=== PATIENT | male | born 1960 | race Two or more races ===

== ENCOUNTER 2016-09-09 12:03 | Inpatient (IN) | payer OTHER ==
[~2016-09-09] VITALS: Ht 175.3 cm; Wt 88.0 kg
[2016-09-09] VITALS (30 sets, daily range): BP systolic 113–160; BP diastolic 58–87; PULSE 58–86; RESP 8–20; Ht 175.3 cm; Wt 88.0 kg
[~2016-09-09 12:03] MED LIST: ONDA-43 PO; RANI150T9 PO; TOPI25CA2 PO
--- NOTE | 2016-09-09 12:36 | HPN ---
Date/Time of Note Date/Time of Note DATE: 09/09/16 TIME: 12:36 Interval H&P Admission Note Pt. seen H&P reviewed: No system changes JORGE OMALLEY MD Sep 09, 2016 12:36
[2016-09-09] MEDS ORDERED: TRAZ100T15 PO (13:24)
[2016-09-09] MEDS ORDERED: ATOR40TA68 PO (13:24)
[2016-09-09] MEDS ORDERED: FLUO40CA PO (13:24)
[2016-09-09] MEDS ORDERED: BENZ0.5T3 PO (13:24)
[2016-09-09] MEDS ORDERED: PROPOFOL 100 ML ONE (13:57)
[2016-09-09] MEDS ORDERED: MIDAZOLAM 1 MG/ML 2 ML INJ ONE ×2 (13:57)
[2016-09-09] MEDS ORDERED: CEFAZOLIN 1 GM INJ ONE (13:57)
[2016-09-09] MEDS ORDERED: TRANEXAMIC ACID 1,000 MG in SOD CHLORIDE 0.9% 100 ML IV ONE ×4 (14:00)
[2016-09-09] MEDS ORDERED: POLYMYXIN/BACITRACIN 1L IRRIG ONE (14:51)
[2016-09-09] MEDS ORDERED: morphine SULFATE/PF (10 MG/10 ML) INJ ONE (15:02)
[2016-09-09] MEDS ORDERED: ACETAMINOPHEN 1000MG/100ML IV 100 ML ONE (15:23)
[2016-09-09] MEDS ORDERED: ONDANSETRON 4 MG INJ ONE (15:35)
[2016-09-09] MEDS ORDERED: METOCLOPRAMIDE 10 MG INJ ONE (15:35)
[2016-09-09] MEDS ORDERED: DEXAMETHASONE 4 MG/ML 1 ML INJ ONE (15:36)
[2016-09-09] MEDS ORDERED: KETOROLAC 30 MG INJ ONE (15:36)
[2016-09-09] MEDS ORDERED: PHENYLephrine (100 MCG/ML) 5ML SYG ONE ×2 (16:35→17:12)
[2016-09-09] MEDS ORDERED: ROPIVACAINE 0.5 % 30 ML VIAL ONE (16:51)
[2016-09-09] MEDS ORDERED: morphine (1 MG/ML) 10ML SYRINGE IV PRN ×2 (17:00)
[2016-09-09] MEDS ORDERED: ALBUMIN HUMAN 5% 250 ML IV PRN (17:00)
[2016-09-09] MEDS ORDERED: NALBUPHINE HCL (10 MG/1 ML) INJ IV PRN (17:00)
[2016-09-09] MEDS ORDERED: EPHEDrine SULFATE 50 MG/5 ML SYG IV PRN (17:00)
[2016-09-09] MEDS ORDERED: LABETALOL HCL 20MG INJ IV PRN (17:00)
[2016-09-09] MEDS ORDERED: MEPERIDINE 25 MG INJ IV PRN (17:00)
[2016-09-09] MEDS ORDERED: HYDROmorphONE (0.2 MG/ML) 10ML SYG IV PRN ×2 (17:00)
[2016-09-09] MEDS ORDERED: METOCLOPRAMIDE 10 MG INJ IV PRN (17:00)
[2016-09-09] MEDS ORDERED: hydrALAzine 20 MG INJ IV PRN (17:00)
[2016-09-09] MEDS ORDERED: NALOXONE (0.4 MG/ML) INJ IV PRN (17:00)
[2016-09-09] MEDS ORDERED: ONDANSETRON 4 MG INJ IV PRN ×2 (17:00→23:00)
[2016-09-09] MEDS ORDERED: DIPHENHYDRAMINE 50 MG INJ IV PRN ×2 (17:00)
[2016-09-09 17:41] LABS: HEMATOCRIT 37.2 % (42.0-52.0); HEMOGLOBIN 12.5 g/dl (14.0-18.0)
--- NOTE | 2016-09-09 17:52 | QN ---
Documentation Comment A.P TKREPLcement dyslipedemia plan per OMAR Mandujano MD Sep 09, 2016 17:52
[2016-09-09 18:02] LABS: CALCIUM 8.8 mg/dl (8.4-10.2); CREATININE 0.99 mg/dl (0.61-1.24); POTASSIUM 4.1 mmol/L (3.5-5.1)
[2016-09-09] MEDS: CEFAZOLIN 1 GM/50 ML (PMX) 50 ML IVPB SCH (19:53)
[2016-09-09] MEDS ORDERED: SOD CHLORIDE 0.9% 1,000 ML IV SCH (23:00)
[2016-09-09] MEDS ORDERED: ACETAMINOPHEN 325 MG TAB PO PRN (23:00)
[2016-09-10 00:02] VITALS: BP 132/77; PULSE 77; RESP 18
[2016-09-10] MEDS: CEFAZOLIN 1 GM/50 ML (PMX) 50 ML IVPB SCH ×2 (04:31→11:52)
[2016-09-10 05:23] LABS: ADD SCAN DIFF NO
[2016-09-10 05:30] LABS: BASOPHILS % 0.1 % (0.0-2.0); HEMATOCRIT 35.9 % (42.0-52.0); HEMOGLOBIN 12.1 g/dl (14.0-18.0); LYMPHOCYTES # 0.9 10^3/ul (0.8-2.9); LYMPHOCYTES % 7.2 % (15.0-51.0); MEAN CORPUSCULAR HEMOGLOBIN 28.9 pg (29.0-33.0); MEAN CORPUSCULAR HGB CONC 33.7 g/dl (32.0-37.0); MEAN CORPUSCULAR VOLUME 85.9 fl (82.0-101.0); MEAN PLATELET VOLUME 10.2 fl (7.4-10.4); MONOCYTE # 0.5 10^3/ul (0.3-0.9); MONOCYTES % 3.9 % (0.0-11.0); NEUTROPHIL # 10.9 10^3/ul (1.6-7.5); NEUTROPHILS % 88.4 % (39.0-77.0); PLATELET COUNT 233 10^3/UL (140-415); RED BLOOD COUNT 4.18 10^6/ul (4.70-6.10); WHITE BLOOD COUNT 12.3 10^3/ul (4.8-10.8)
[2016-09-10 05:56] LABS: CALCIUM 9.1 mg/dl (8.4-10.2); CREATININE 0.87 mg/dl (0.61-1.24); POTASSIUM 4.1 mmol/L (3.5-5.1)
--- NOTE | 2016-09-10 08:09 | QN ---
Documentation Comment [id number] OMAR ALICIA MD Sep 10, 2016 08:09
[2016-09-10 08:20] VITALS: BP 138/79; RESP 20
[2016-09-10] MEDS: FLUOXETINE 20 MG CAP PO SCH (08:28)
[2016-09-10] MEDS: TOPIRAMATE 25 MG TAB PO SCH ×2 (08:28→21:06)
[2016-09-10] MEDS: RANITIDINE 150 MG TAB PO SCH (08:28)
[2016-09-10] MEDS ORDERED: MAGNESIUM HYDROXIDE 30ML CUP PO PRN (08:30)
[2016-09-10] MEDS ORDERED: ONDANSETRON 4 MG INJ IV PRN (08:30)
[2016-09-10] MEDS ORDERED: NA PHOSPHATE/BIPHOS 133 ML ENEMA PR PRN (08:30)
[2016-09-10] MEDS ORDERED: ACETAMINOPHEN 325 MG TAB PO PRN (08:30)
[2016-09-10] MEDS ORDERED: ZOLPIDEM 5 MG TAB PO PRN (08:30)
[2016-09-10] MEDS ORDERED: HYDROCODONE/APAP (5/325) TAB PO PRN (08:30)
[2016-09-10] MEDS ORDERED: NACL 0.9% 3 ML SYG IV SCH (08:30)
[2016-09-10] MEDS ORDERED: ACETAMINOPHEN 650 MG SUPP PR PRN (08:30)
[2016-09-10] MEDS ORDERED: BISACODYL (EC) 5 MG TAB PO PRN (08:30)
[2016-09-10] MEDS ORDERED: RIVAROXABAN 10 MG TABLET PO SCH (09:00)
[2016-09-10] MEDS ORDERED: DOCUSATE SODIUM 100 MG CAP PO PRN (09:00)
[2016-09-10] MEDS ORDERED: TOPIRAMATE SPRINKLE 25 MG CAP PO SCH (09:00)
[2016-09-10] MEDS: morphine 2 MG INJ IV PRN ×2 (09:11→15:37)
[2016-09-10] MEDS: HYDROCODONE/APAP (10/325) TAB PO PRN ×2 (11:58→21:09)
--- NOTE | 2016-09-10 13:10 | PN ---
Date/Time of Note Date/Time of Note DATE: 09/10/16 TIME: 13:08 Assessment/Plan VTE Prophylaxis VTE Prophylaxis Intervention: SCD's Lines/Catheters IV Catheter Type (from Nrs): Saline Lock Urinary Cath still in place: Yes Reason Cath still needed: other (indicate) (will remove) Assessment/Plan Chief Complaint/Hosp Course 1. S/p right knee replacement 2. Hypertension, controlled 3. Overweight 4. Dyslipidemia 5. depression, major Problems: Assessment/Plan 1. D/c [place] 2. Stop IV fluids Subjective 24 Hr Interval Summary Constitutional: improved, no complaints Respiratory: no complaints Cardiovascular: no complaints Musculoskeletal: bone/joint pain (right knee) Exam/Review of Systems Vital Signs Vitals Vital Signs Date Time Temp Pulse Resp B/P Pulse Ox O2 Delivery O2 Flow Rate FiO2 09/10/16 08:20 98.7 79 20 138/79 94 09/10/16 00:02 Nasal Cannula 2.0 Intake and Output 09/09/16 09/09/16 09/10/16 15:00 23:00 07:00 Intake Total 2000 ml 1525 ml Output Total 600 ml 1640 ml Balance 1400 ml -115 ml Exam Constitutional: alert, oriented Neck: non-tender, supple Respiratory: clear to auscultation Cardiovascular: regular rate and rhythm Results Result Diagram: 09/10/16 0426 09/10/16 0426 Results 24 hrs Laboratory Tests Test 09/09/16 17:36 09/10/16 04:26 Hemoglobin 12.5 L 12.1 L Hematocrit 37.2 L 35.9 L Sodium Level 139 140 Potassium Level 4.1 4.1 Chloride Level 106 101 Carbon Dioxide Level 24 27 Anion Gap 13 16 Blood Urea Nitrogen 13 12 Creatinine 0.99 0.87 Glucose Level 93 135 # Calcium Level 8.8 9.1 White Blood Count 12.3 #H Red Blood Count 4.18 L Mean Corpuscular Volume 85.9 Mean Corpuscular Hemoglobin 28.9 L Mean Corpuscular Hemoglobin Concent 33.7 Red Cell Distribution Width 13.0 Platelet Count 233 Mean Platelet Volume 10.2 # Neutrophils % 88.4 H Lymphocytes % 7.2 L Monocytes % 3.9 Eosinophils % 0.0 Basophils % 0.1 Nucleated Red Blood Cells % 0.0 Neutrophils # 10.9 H Lymphocytes # 0.9 Monocytes # 0.5 Eosinophils # 0.0 Basophils # 0.0 Nucleated Red Blood Cells # 0.0 Medications Medications Current Medications Diphenhydramine HCl (Benadryl) 25 mg Q4H PRN IV PRURITUS; Start 09/09/16 at 17: 00 Nalbuphine HCl (Nubain) 10 mg Q4H PRN IV PRURITUS; Start 09/09/16 at 17:00 Naloxone HCl (Narcan) 0.2 mg Q2M PRN IV FOR RESP RATE 8 OR LESS; Start 09/09/16 at 17:00 Atorvastatin Calcium (Lipitor) 40 mg QHS PO ; Start 09/10/16 at 21:00 Benztropine Mesylate (Cogentin) 0.5 mg QHS PO ; Start 09/10/16 at 21:00 Fluoxetine HCl (Prozac) 20 mg DAILY PO Last administered on 09/10/16 08:28; Admin Dose 20 MG; Start 09/10/16 at 09:00 Trazodone HCl (Desyrel) 100 mg QHS PO ; Start 09/10/16 at 21:00 Patient Own Medication 2 ea HS PO ; Start 09/10/16 at 00:00 Clonidine 0.1 mg 0.1 mg Q6H PRN PO ELEVATED BLOOD PRESSURE; Start 09/09/16 at 23 :00 Sodium Chloride (NS) 1,000 ml @ 50 mls/hr Q20H IV Last administered on 23:36; Admin Dose 50 MLS/HR; Start 09/09/16 at 23:00 Ondansetron HCl (Zofran Inj) 4 mg Q6H PRN IV NAUSEA AND/OR VOMITING Last administered on 09/09/16 23:37; Admin Dose 4 MG; Start 09/09/16 at 23:00 Morphine Sulfate (morphine) 2 mg Q3H PRN IV PAIN Last administered on 09/10/16 09:11; Admin Dose 2 MG; Start 09/09/16 at 23:00 Topiramate (Topamax) 25 mg BID PO Last administered on 09/10/16 08:28; Admin Dose 25 MG; Start 09/10/16 at 09:00 Acetaminophen/ Hydrocodone Bitart ([place] (10/325)) 1 tab Q4H PRN PO PAIN Last administered on 09/10/16 11:58; Admin Dose 1 TAB; Start 09/10/16 at 08:00 Ranitidine HCl (Zantac) 150 mg DAILY PO Last administered on 09/10/16t 08:28; Admin Dose 150 MG; Start 09/10/16 at 09:00 Ondansetron HCl (Zofran Inj) 4 mg Q6H PRN IV NAUSEA AND/OR VOMITING; Start 09/10 at 08:30 Acetaminophen (Tylenol Tab) 650 mg Q6H PRN PO PAIN LEVEL 1-3 OR FEVER; Start at 08:30 Acetaminophen (Tylenol Supp) 650 mg Q6H PRN [place] PAIN LEVEL 1-3 OR FEVER; Start 09/10/16 at 08:30 Acetaminophen/ Hydrocodone Bitart ([place] (5/325)) 1 tab Q6H PRN PO MODERATE PAIN LEVEL 4-6; Start 09/10/16 at 08:30 Acetaminophen/ Hydrocodone Bitart ([place] (5/325)) 2 tab Q6H PRN PO SEVERE PAIN LEVEL 7-10; Start 09/10/16 at 08:30 Docusate Sodium (Colace) 100 mg Q12H PRN PO CONSTIPATION; Start 09/10/16 at 09: 00 Magnesium Hydroxide (Milk Of Mag) 30 ml DAILY PRN PO CONSTIPATION; Start at 08:30 Bisacodyl (Dulcolax) 5 mg DAILY PRN PO CONSTIPATION; Start 09/10/16 at 08:30 Sodium Biphosphate/ Sodium Phosphate (Fleet Enema) 133 ml DAILY PRN [place] CONSTIPATION; Start 09/10/16 at 08:30 Zolpidem Tartrate (Ambien) 5 mg QHS PRN PO SLEEP; Start 09/10/16 at 08:30 JOSEPH ROMEO Sep 10, 2016 13:10
[2016-09-10] MEDS: RIVAROXABAN 10 MG TABLET PO SCH (17:36)
[2016-09-10 20:00] VITALS: BP 131/73; RESP 19
[2016-09-10] MEDS: ATORVASTATIN 40 MG TAB PO SCH (21:06)
[2016-09-10] MEDS: traZODone 100 MG TAB PO SCH (21:06)
[2016-09-10] MEDS: TRIFLUOPERAZINE 2 MG PO SCH ×2 (21:09)
[2016-09-11] MEDS: BENZTROPINE 1 MG TAB PO SCH ×2 (00:29→21:41)
[2016-09-11 05:36] LABS: ADD SCAN DIFF NO
[2016-09-11 05:43] LABS: BASOPHILS % 0.3 % (0.0-2.0); EOSINOPHILS # 0.1 10^3/ul (0.0-0.5); EOSINOPHILS % 0.6 % (0.0-7.0); HEMATOCRIT 31.4 % (42.0-52.0); HEMOGLOBIN 10.3 g/dl (14.0-18.0); LYMPHOCYTES # 2.5 10^3/ul (0.8-2.9); LYMPHOCYTES % 24.2 % (15.0-51.0); MEAN CORPUSCULAR HEMOGLOBIN 28.9 pg (29.0-33.0); MEAN CORPUSCULAR HGB CONC 32.8 g/dl (32.0-37.0); MEAN CORPUSCULAR VOLUME 88.2 fl (82.0-101.0); MEAN PLATELET VOLUME 10.3 fl (7.4-10.4); MONOCYTE # 0.9 10^3/ul (0.3-0.9); MONOCYTES % 8.5 % (0.0-11.0); NEUTROPHIL # 6.7 10^3/ul (1.6-7.5); NEUTROPHILS % 66.1 % (39.0-77.0); PLATELET COUNT 205 10^3/UL (140-415); RED BLOOD COUNT 3.56 10^6/ul (4.70-6.10); RED CELL DISTRIBUTION WIDTH 13.3 % (11.5-14.5); WHITE BLOOD COUNT 10.1 10^3/ul (4.8-10.8)
[2016-09-11 06:16] LABS: CALCIUM 8.9 mg/dl (8.4-10.2); CREATININE 0.89 mg/dl (0.61-1.24); POTASSIUM 3.6 mmol/L (3.5-5.1)
[2016-09-11] MEDS: FLUOXETINE 20 MG CAP PO SCH (08:18)
[2016-09-11] MEDS: TOPIRAMATE 25 MG TAB PO SCH ×2 (08:18→21:41)
[2016-09-11] MEDS: RANITIDINE 150 MG TAB PO SCH (08:18)
[2016-09-11] MEDS: HYDROCODONE/APAP (10/325) TAB PO PRN ×3 (08:19→17:25)
--- NOTE | 2016-09-11 10:38 | OPPN ---
Date/Time of Note Date/Time of Note DATE: 09/11/16 TIME: 10:38 Post-Anesthesia Notes Post-Anesthesia Note Last documented vital signs Vital Signs Date Time Temp Pulse Resp B/P Pulse Ox O2 Delivery O2 Flow Rate FiO2 09/10/16 20:00 99.0 96 19 131/73 95 09/10/16 00:02 Nasal Cannula 2.0 Activity: WNL Respiratory function: WNL Cardiovascular function: WNL Mental status: Baseline Pain reasonably controlled: Yes Hydration appropriate: Yes Nausea/Vomiting absent: Yes JONATHAN NAVA MD Sep 11, 2016 10:38
--- NOTE | 2016-09-11 15:06 | PN ---
Date/Time of Note Date/Time of Note DATE: 09/11/16 TIME: 15:04 Assessment/Plan VTE Prophylaxis VTE Prophylaxis Intervention: other Lines/Catheters IV Catheter Type (from Nrs): Saline Lock Urinary Cath still in place: No Assessment/Plan Chief Complaint/Hosp Course S/P KNEE SURGERY HTN DYSLIPEDEMIA HX DEPRESSION PLAN PAIN MEDS Problems: Subjective 24 Hr Interval Summary Constitutional: No febrile Respiratory: no complaints Cardiovascular: no complaints Exam/Review of Systems Vital Signs Vitals Vital Signs Date Time Temp Pulse Resp B/P Pulse Ox O2 Delivery O2 Flow Rate FiO2 09/10/16 20:00 99.0 96 19 131/73 95 09/10/16 00:02 Nasal Cannula 2.0 Intake and Output 09/10/16 09/10/16 09/11/16 15:00 23:00 07:00 Intake Total 700 ml 1480 ml 1200 ml Output Total 2700 ml 1400 ml Balance 700 ml -1220 ml -200 ml Exam Respiratory: clear to auscultation Cardiovascular: regular rate and rhythm Gastrointestinal: soft Musculoskeletal: joint tenderness Extremities: No edema Results Result Diagram: 09/11/16 0456 09/11/16 0456 Results 24 hrs Laboratory Tests Test 09/11/16 04:56 White Blood Count 10.1 Red Blood Count 3.56 L Hemoglobin 10.3 L Hematocrit 31.4 L Mean Corpuscular Volume 88.2 Mean Corpuscular Hemoglobin 28.9 L Mean Corpuscular Hemoglobin Concent 32.8 Red Cell Distribution Width 13.3 Platelet Count 205 Mean Platelet Volume 10.3 Neutrophils % 66.1 Lymphocytes % 24.2 Monocytes % 8.5 Eosinophils % 0.6 Basophils % 0.3 Nucleated Red Blood Cells % 0.0 Neutrophils # 6.7 Lymphocytes # 2.5 Monocytes # 0.9 Eosinophils # 0.1 Basophils # 0.0 Nucleated Red Blood Cells # 0.0 Sodium Level 139 Potassium Level 3.6 Chloride Level 100 Carbon Dioxide Level 28 Anion Gap 15 Blood Urea Nitrogen 15 Creatinine 0.89 Glucose Level 116 Hemoglobin A1c 5.9 Calcium Level 8.9 Medications Medications Current Medications Diphenhydramine HCl (Benadryl) 25 mg Q4H PRN IV PRURITUS; Start 09/09/16 at 17: 00 Nalbuphine HCl (Nubain) 10 mg Q4H PRN IV PRURITUS; Start 09/09/16 at 17:00 Naloxone HCl (Narcan) 0.2 mg Q2M PRN IV FOR RESP RATE 8 OR LESS; Start 09/09/16 at 17:00 Atorvastatin Calcium (Lipitor) 40 mg QHS PO Last administered on 09/10/16 21:06 ; Admin Dose 40 MG; Start 09/10/16 at 21:00 Benztropine Mesylate (Cogentin) 0.5 mg QHS PO Last administered on 09/11/16 00: 29; Admin Dose 0.5 MG; Start 09/10/16 at 21:00 Fluoxetine HCl (Prozac) 20 mg DAILY PO Last administered on 09/11/16 08:18; Admin Dose 20 MG; Start 09/10/16 at 09:00 Trazodone HCl (Desyrel) 100 mg QHS PO Last administered on 09/10/16 21:06; Admin Dose 100 MG; Start 09/10/16 at 21:00 Patient Own Medication 2 ea HS PO Last administered on 09/10/16 21:09; Admin Dose 2 EA; Start 09/10/16 at 00:00 Clonidine (Catapres) 0.1 mg Q6H PRN PO ELEVATED BLOOD PRESSURE; Start 09/09/16 at 23:00 Ondansetron HCl (Zofran Inj) 4 mg Q6H PRN IV NAUSEA AND/OR VOMITING Last administered on 09/09/16 23:37; Admin Dose 4 MG; Start 09/09/16 at 23:00 Morphine Sulfate (morphine) 2 mg Q3H PRN IV PAIN Last administered on 09/10/16 15:37; Admin Dose 2 MG; Start 09/09/16 at 23:00 Topiramate (Topamax) 25 mg BID PO Last administered on 09/11/16 08:18; Admin Dose 25 MG; Start 09/10/16 at 09:00 Acetaminophen/ Hydrocodone Bitart ([place] (10/325)) 1 tab Q4H PRN PO PAIN Last administered on 09/11/16 13:31; Admin Dose 1 TAB; Start 09/10/16 at 08:00 Ranitidine HCl (Zantac) 150 mg DAILY PO Last administered on 09/11/16 08:18; Admin Dose 150 MG; Start 09/10/16 at 09:00 Ondansetron HCl (Zofran Inj) 4 mg Q6H PRN IV NAUSEA AND/OR VOMITING; Start 09/10 at 08:30 Acetaminophen (Tylenol Tab) 650 mg Q6H PRN PO PAIN LEVEL 1-3 OR FEVER; Start at 08:30 Acetaminophen (Tylenol Supp) 650 mg Q6H PRN [place] PAIN LEVEL 1-3 OR FEVER; Start 09/10/16 at 08:30 Acetaminophen/ Hydrocodone Bitart ([place] (5/325)) 1 tab Q6H PRN PO MODERATE PAIN LEVEL 4-6 Last administered on 09/11/16 14:57; Admin Dose 1 TAB; Start 09/10 at 08:30 Acetaminophen/ Hydrocodone Bitart ([place] (5/325)) 2 tab Q6H PRN PO SEVERE PAIN LEVEL 7-10; Start 09/10/16 at 08:30 Docusate Sodium (Colace) 100 mg Q12H PRN PO CONSTIPATION; Start 09/10/16 at 09: 00 Magnesium Hydroxide (Milk Of Mag) 30 ml DAILY PRN PO CONSTIPATION; Start at 08:30 Bisacodyl (Dulcolax) 5 mg DAILY PRN PO CONSTIPATION; Start 09/10/16 at 08:30 Sodium Biphosphate/ Sodium Phosphate (Fleet Enema) 133 ml DAILY PRN [place] CONSTIPATION; Start 09/10/16 at 08:30 Zolpidem Tartrate (Ambien) 5 mg QHS PRN PO SLEEP; Start 09/10/16 at 08:30 OMAR ALICIA MD Sep 11, 2016 15:05
[2016-09-11] MEDS: RIVAROXABAN 10 MG TABLET PO SCH (17:24)
[2016-09-11 20:29] VITALS: BP 114/66; RESP 16
[2016-09-11] MEDS: traZODone 100 MG TAB PO SCH (21:40)
[2016-09-11] MEDS: ATORVASTATIN 40 MG TAB PO SCH (21:40)
[2016-09-11] MEDS: HYDROCODONE/APAP (5/325) TAB PO PRN (21:41)
[2016-09-11] MEDS: TRIFLUOPERAZINE 2 MG PO SCH (21:41)
[2016-09-12] MEDS: HYDROCODONE/APAP (5/325) TAB PO PRN (03:57)
[2016-09-12 05:05] LABS: ADD SCAN DIFF NO
[2016-09-12 05:13] LABS: BASOPHILS % 0.4 % (0.0-2.0); EOSINOPHILS # 0.1 10^3/ul (0.0-0.5); EOSINOPHILS % 0.9 % (0.0-7.0); HEMOGLOBIN 10.9 g/dl (14.0-18.0); LYMPHOCYTES # 1.2 10^3/ul (0.8-2.9); LYMPHOCYTES % 12.7 % (15.0-51.0); MEAN CORPUSCULAR HEMOGLOBIN 28.9 pg (29.0-33.0); MEAN CORPUSCULAR VOLUME 87.5 fl (82.0-101.0); MEAN PLATELET VOLUME 10.1 fl (7.4-10.4); MONOCYTE # 0.6 10^3/ul (0.3-0.9); NEUTROPHIL # 7.8 10^3/ul (1.6-7.5); NEUTROPHILS % 79.7 % (39.0-77.0); PLATELET COUNT 194 10^3/UL (140-415); RED BLOOD COUNT 3.77 10^6/ul (4.70-6.10); RED CELL DISTRIBUTION WIDTH 12.8 % (11.5-14.5); WHITE BLOOD COUNT 9.8 10^3/ul (4.8-10.8)
[2016-09-12 05:44] LABS: CREATININE 0.84 mg/dl (0.61-1.24); POTASSIUM 3.6 mmol/L (3.5-5.1)
[2016-09-12] MEDS: FLUOXETINE 20 MG CAP PO SCH (08:53)
[2016-09-12] MEDS: TOPIRAMATE 25 MG TAB PO SCH ×2 (08:53→20:41)
[2016-09-12] MEDS: RANITIDINE 150 MG TAB PO SCH (08:53)
[2016-09-12] MEDS: HYDROCODONE/APAP (10/325) TAB PO PRN (08:53)
[2016-09-12 09:07] VITALS: BP 129/78; RESP 18
[2016-09-12] MEDS: morphine 2 MG INJ IV PRN (15:20)
[2016-09-12] MEDS: RIVAROXABAN 10 MG TABLET PO SCH (18:01)
[2016-09-12] MEDS: traZODone 100 MG TAB PO SCH (20:40)
[2016-09-12] MEDS: ATORVASTATIN 40 MG TAB PO SCH (20:40)
[2016-09-12] MEDS: BENZTROPINE 1 MG TAB PO SCH (20:40)
[2016-09-12] MEDS: TRIFLUOPERAZINE 2 MG PO SCH (20:41)
--- NOTE | 2016-09-12 20:56 | PN ---
Date/Time of Note Date/Time of Note DATE: 09/12/16 TIME: 20:55 Assessment/Plan VTE Prophylaxis VTE Prophylaxis Intervention: other Lines/Catheters IV Catheter Type (from Nrs): Saline Lock Urinary Cath still in place: No Assessment/Plan Chief Complaint/Hosp Course S/P KNEE SURGERY HTN DYSLIPEDEMIA HX DEPRESSION PLAN PAIN MEDS per ortho dc planning Problems: Subjective 24 Hr Interval Summary Respiratory: no complaints Cardiovascular: no complaints Musculoskeletal: restricted range of motion Exam/Review of Systems Vital Signs Vitals Vital Signs Date Time Temp Pulse Resp B/P Pulse Ox O2 Delivery O2 Flow Rate FiO2 09/12/16 09:07 99.1 18 18 129/78 98 09/10/16 00:02 Nasal Cannula 2.0 Intake and Output 09/11/16 09/11/16 09/12/16 15:00 23:00 07:00 Intake Total 1540 ml 1600 ml Output Total 1600 ml 2200 ml Balance -60 ml -600 ml Exam Respiratory: clear to auscultation Cardiovascular: regular rate and rhythm Gastrointestinal: soft Musculoskeletal: nl extremities to inspection Results Result Diagram: 09/12/16 0435 09/12/16 0435 Results 24 hrs Laboratory Tests Test 09/12/16 04:35 White Blood Count 9.8 Red Blood Count 3.77 L Hemoglobin 10.9 L Hematocrit 33.0 L Mean Corpuscular Volume 87.5 Mean Corpuscular Hemoglobin 28.9 L Mean Corpuscular Hemoglobin Concent 33.0 Red Cell Distribution Width 12.8 Platelet Count 194 Mean Platelet Volume 10.1 Neutrophils % 79.7 H Lymphocytes % 12.7 L Monocytes % 6.0 Eosinophils % 0.9 Basophils % 0.4 Nucleated Red Blood Cells % 0.0 Neutrophils # 7.8 H Lymphocytes # 1.2 Monocytes # 0.6 Eosinophils # 0.1 Basophils # 0.0 Nucleated Red Blood Cells # 0.0 Sodium Level 137 Potassium Level 3.6 Chloride Level 96 L Carbon Dioxide Level 28 Anion Gap 17 H Blood Urea Nitrogen 13 Creatinine 0.84 Glucose Level 118 Calcium Level 9.0 Medications Medications Current Medications Diphenhydramine HCl (Benadryl) 25 mg Q4H PRN IV PRURITUS; Start 09/09/16 at 17: 00 Nalbuphine HCl (Nubain) 10 mg Q4H PRN IV PRURITUS; Start 09/09/16 at 17:00 Naloxone HCl (Narcan) 0.2 mg Q2M PRN IV FOR RESP RATE 8 OR LESS; Start 09/09/16 at 17:00 Atorvastatin Calcium (Lipitor) 40 mg QHS PO Last administered on 09/12/16 20: 40; Admin Dose 40 MG; Start 09/10/16 at 21:00 Benztropine Mesylate (Cogentin) 0.5 mg QHS PO Last administered on 09/12/16 20 :40; Admin Dose 0.5 MG; Start 09/10/16 at 21:00 Fluoxetine HCl (Prozac) 20 mg DAILY PO Last administered on 09/12/16 08:53; Admin Dose 20 MG; Start 09/10/16 at 09:00 Trazodone HCl (Desyrel) 100 mg QHS PO Last administered on 09/12/16 20:40; Admin Dose 100 MG; Start 09/10/16 at 21:00 Patient Own Medication 2 ea HS PO Last administered on 09/12/16 20:41; Admin Dose 2 EA; Start 09/10/16 at 00:00 Clonidine (Catapres) 0.1 mg Q6H PRN PO ELEVATED BLOOD PRESSURE; Start 09/09/16 at 23:00 Ondansetron HCl (Zofran Inj) 4 mg Q6H PRN IV NAUSEA AND/OR VOMITING Last administered on 09/09/16 23:37; Admin Dose 4 MG; Start 09/09/16 at 23:00 Morphine Sulfate (morphine) 2 mg Q3H PRN IV PAIN Last administered on 15:20; Admin Dose 2 MG; Start 09/09/16 at 23:00 Topiramate (Topamax) 25 mg BID PO Last administered on 09/12/16 20:41; Admin Dose 25 MG; Start 09/10/16 at 09:00 Acetaminophen/ Hydrocodone Bitart ([place] (10/325)) 1 tab Q4H PRN PO PAIN Last administered on 09/12/16 08:53; Admin Dose 1 TAB; Start 09/10/16 at 08:00 Ranitidine HCl (Zantac) 150 mg DAILY PO Last administered on 09/12/16 08:53; Admin Dose 150 MG; Start 09/10/16 at 09:00 Ondansetron HCl (Zofran Inj) 4 mg Q6H PRN IV NAUSEA AND/OR VOMITING; Start 09/10 at 08:30 Acetaminophen (Tylenol Tab) 650 mg Q6H PRN PO PAIN LEVEL 1-3 OR FEVER; Start at 08:30 Acetaminophen (Tylenol Supp) 650 mg Q6H PRN [place] PAIN LEVEL 1-3 OR FEVER; Start 09/10/16 at 08:30 Acetaminophen/ Hydrocodone Bitart ([place] (5/325)) 1 tab Q6H PRN PO MODERATE PAIN LEVEL 4-6 Last administered on 09/11/16 14:57; Admin Dose 1 TAB; Start 09/10 at 08:30 Acetaminophen/ Hydrocodone Bitart ([place] (5/325)) 2 tab Q6H PRN PO SEVERE PAIN LEVEL 7-10 Last administered on 09/12/16 03:57; Admin Dose 2 TAB; Start at 08:30 Docusate Sodium (Colace) 100 mg Q12H PRN PO CONSTIPATION Last administered on 08:53; Admin Dose 100 MG; Start 09/10/16 at 09:00 Magnesium Hydroxide (Milk Of Mag) 30 ml DAILY PRN PO CONSTIPATION; Start at 08:30 Bisacodyl (Dulcolax) 5 mg DAILY PRN PO CONSTIPATION Last administered on 08:53; Admin Dose 5 MG; Start 09/10/16 at 08:30 Sodium Biphosphate/ Sodium Phosphate (Fleet Enema) 133 ml DAILY PRN [place] CONSTIPATION; Start 09/10/16 at 08:30 Zolpidem Tartrate (Ambien) 5 mg QHS PRN PO SLEEP; Start 09/10/16 at 08:30 OMAR ALICIA MD Sep 12, 2016 20:56
[2016-09-13] MEDS: morphine 2 MG INJ IV PRN (01:28)
[2016-09-13 05:16] LABS: ADD SCAN DIFF NO
[2016-09-13 05:21] LABS: BASOPHILS % 0.2 % (0.0-2.0); EOSINOPHILS # 0.1 10^3/ul (0.0-0.5); EOSINOPHILS % 0.6 % (0.0-7.0); HEMATOCRIT 33.5 % (42.0-52.0); LYMPHOCYTES # 1.6 10^3/ul (0.8-2.9); LYMPHOCYTES % 14.9 % (15.0-51.0); MEAN CORPUSCULAR HEMOGLOBIN 28.4 pg (29.0-33.0); MEAN CORPUSCULAR HGB CONC 32.8 g/dl (32.0-37.0); MEAN CORPUSCULAR VOLUME 86.6 fl (82.0-101.0); MEAN PLATELET VOLUME 10.2 fl (7.4-10.4); MONOCYTE # 0.9 10^3/ul (0.3-0.9); MONOCYTES % 8.8 % (0.0-11.0); NEUTROPHIL # 7.9 10^3/ul (1.6-7.5); PLATELET COUNT 216 10^3/UL (140-415); RED BLOOD COUNT 3.87 10^6/ul (4.70-6.10); RED CELL DISTRIBUTION WIDTH 13.2 % (11.5-14.5); WHITE BLOOD COUNT 10.5 10^3/ul (4.8-10.8)
[2016-09-13 05:41] LABS: CALCIUM 9.5 mg/dl (8.4-10.2); CREATININE 0.67 mg/dl (0.61-1.24); POTASSIUM 3.6 mmol/L (3.5-5.1)
[2016-09-13] MEDS: FLUOXETINE 20 MG CAP PO SCH (08:24)
[2016-09-13] MEDS: HYDROCODONE/APAP (10/325) TAB PO PRN ×2 (08:25→15:06)
[2016-09-13] MEDS: RANITIDINE 150 MG TAB PO SCH (08:25)
[2016-09-13] MEDS: TOPIRAMATE 25 MG TAB PO SCH (08:25)
[2016-09-13 08:36] VITALS: BP 133/80; RESP 18
[2016-09-13] MEDS: RIVAROXABAN 10 MG TABLET PO SCH (17:23)
--- NOTE | 2016-09-13 18:19 | PDOCDIS ---
Discharge Instructions CONDITION Patient Condition: Stable HOME CARE INSTRUCTIONS: Diet Instructions: Regular ACTIVITY: Activity Restrictions: Slowly Increase Activity Rest between Activity Avoid heavy lifting Do not Drive Avoid Heavy Housework Bathing Restrictions: ShowerActivity Restrictions Comment: Change dressing after shower FOLLOW UP/APPOINTMENTS Follow-up Plan f/u pcp [address] small 1 wk OMAR ALICIA MD Sep 13, 2016 18:18
[2016-09-13] MEDS ORDERED: BISA5TAB6 PO (18:21)
[2016-09-13] MEDS ORDERED: Hydrocodone/Apap (10/325) PO (18:21)
[2016-09-13] MEDS ORDERED: RIVA10TA PO (18:21)
[2016-09-13] MEDS ORDERED: DOCU-216 PO (18:21)
--- NOTE | 2016-09-16 09:44 | CONS ---
DATE OF ADMISSION: 09/09/2016 DATE OF CONSULTATION: HISTORY OF PRESENT ILLNESS: Patient has a history of ascites. Patient underwent total knee replacement and is being seen postprocedure. Patient is easily arousable. Laboratory data done: Hematocrit 37.2. Sodium 139, potassium 4.1. Patient is to be monitored for further management. PAST MEDICAL HISTORY: Positive for dyslipidemia, , CKD, anxiety, depression. ALLERGIES: NEGATIVE. FAMILY HISTORY: Noncontributory. SOCIAL HISTORY: Negative. MEDICATION: Atorvastatin, Vicoprofen, 0.5 p.o. at bedtime, fluoxetine 40 mg, Topamax and trazodone. REVIEW OF SYSTEMS: HEENT: Unremarkable. RESPIRATORY: Unremarkable. CARDIOVASCULAR: Unremarkable. GASTROINTESTINAL: Unremarkable. MUSCULOSKELETAL: As mentioned and pain. NEUROLOGIC: Unremarkable. PHYSICAL EXAMINATION: GENERAL: Patient is awake and alert, seen in the recovery room. VITAL SIGNS: Pulse 80, blood pressure STABLE. HEENT: Head is atraumatic, normocephalic. Pupils are equal, react to light. NECK: Supple. There is no JVD or lymphadenopathy. _ are normal. ABDOMEN: Soft, nontender. Bowel sounds positive. EXTREMITIES: No clubbing, cyanosis, or edema. Patient had a dressing in the knee area. IMPRESSION: 1. Status post total knee replacement. 2. Hypertension. 3. Patient has underlying history of anxiety and depression, a history of dyslipidemia. PLAN: Continue home medications. I will include the medication orders for him. Dictated By: Rajan Harris MD /[email or web address]/kia /Document#: [id number] DEJA
--- NOTE | 2016-09-19 22:24 | DS ---
Date/Time of Note Date/Time of Note DATE: 09/19/16 TIME: 22:19 Discharge Summary Admission/Discharge Info Admit Date/Time Sep 09, 2016 at 12:03 Discharge Date/Time Sep 13, 2016 at 18:50 Discharge Diagnosis s/p right knee replacement Patient Condition: Good Procedures right knee arthroplasty Hx of Present Illness pt was admitted for planned right knee arthroplasty, tolerated well and was d/c home with home health and home PT Hospital Course S/P KNEE SURGERY HTN DYSLIPEDEMIA HX DEPRESSION PLAN PAIN MEDS per ortho dc planning Home Meds Active Scripts Rivaroxaban* (Xarelto*) 10 Mg Tablet, 10 MG PO WITH DINNER for 28 Days, TAB Prov:OMAR ALICIA MD 09/13/16 [Hydrocodone/Apap ()] 1 TAB TAB No Conflict Check, 1 TAB PO Q4H Y for PAIN for 14 Days Prov:OMAR ALICIA MD 09/13/16 Docusate Sodium (Dok) 100 Mg Capsule, 100 MG PO Q12H Y for CONSTIPATION for 28 Days, CAP Prov:OMAR ALICIA MD 09/13/16 Bisacodyl* (Bisacodyl*) 5 Mg Tablet.dr, 5 MG PO DAILY Y for CONSTIPATION for 14 Days Prov:OMAR ALICIA MD 09/13/16 Reported Medications Trazodone Hcl* (Trazodone Hcl*) 100 Mg Tablet, 100 MG PO QHS, #30 TAB 09/09/16 Fluoxetine Hcl* (Fluoxetine Hcl*) 40 Mg Capsule, 40 MG PO DAILY, CAP 09/09/16 Atorvastatin* (Atorvastatin*) 40 Mg Tablet, 40 MG PO QHS, #30 TAB 09/09/16 Benztropine Mesylate* (Benztropine Mesylate*) 0.5 Mg Tablet, 0.5 MG PO QHS, TAB 09/09/16 Topiramate* (Topiramate*) 25 Mg Cap.sprink, 25 MG PO BID, CAP 12/04/14 Follow-up Plan per surgery Primary Care Provider Gabriel Machuca Time spent on discharge: < 30 minutes JOSEPH ROMEO Sep 19, 2016 22:23
--- NOTE | 2016-09-20 15:26 | OPR ---
DATE OF OPERATION: 09/09/2016 SURGEON: Jes Martínez MD ANESTHESIA: General. PREOPERATIVE DIAGNOSIS: Right knee osteoarthritis. POSTOPERATIVE DIAGNOSIS: Right knee osteoarthritis. OPERATION PERFORMED: Right total knee arthroplasty using Goel and Nephew posterior stabilized Oxinium 6, tibia 5, 9-mm liner, 26-mm patella. All components cemented with antibiotic- impregnated cement. ESTIMATED BLOOD LOSS: 250 mL TOURNIQUET TIME: 55 minutes. COMPLICATIONS: None. DESCRIPTION OF PROCEDURE: The patient was taken to the operating room and general anesthetic given with intubation. A spinal block was also given preoperatively. Kefzol 2 mg given for prophylaxis. Tranexamic acid used intravenously. Tourniquet applied to the right thigh. The right leg was prepped and draped in the usual sterile manner and exsanguinated with the Esmarch bandage. The tourniquet was inflated to 300 mm of mercury. Anterior incision made, arthrotomy made. Severe osteoarthritis noted in all compartments. Osteophytes removed. The patella was prepared for concave, 26-mm button. The femur was cut with the intramedullary jig for a size 6 tibia or size 5. Trial reduction carried out with 9-mm and full extension achieved. Stable medial-lateral flexion-extension. Definitive components were brought in. The wound was irrigated with pulsatile lavage. The cement was applied satisfactorily. Excess cement removed. The patellar tracking was satisfactory. The knee was stable. Autotransfusion drain was placed. The tourniquet was deflated. Hemostasis ascertained using cautery. Arthrotomy closed with number 2 FiberWire suture and number 1 Vicryl sutures. Skin closed with oma. Compression bandage applied. Anesthetic reversed. The patient was taken to recovery in stable condition. Dictated By: Jes Martínez MD /lashell/meg /Document#: [id number]
== END 2016-09-13 18:50 | disposition home or self-care (01) | DRG 470 ==
LOC: REC 12:03 → MS1 20:06
PROVIDERS: ADMIT Internal Medicine Nephrology; ATTEND Specialist
PROC: 0SRC0J9 Replacement of Right Knee Joint with Synthetic Substitute, Cemented, Open Approach (ICD-10-PCS; principal; 2016-09-09 15:30)
DX: M17.11 Unilateral primary osteoarthritis, right knee (principal); I10 Essential (primary) hypertension; E78.5 Hyperlipidemia, unspecified; R73.03 Prediabetes; E66.3 Overweight; F32.9 Major depressive disorder, single episode, unspecified; Z68.28 Body mass index [BMI] 28.0-28.9, adult
CPT/HCPCS: 80048; 82962; 83036; 85014; 85018; 85025; 88304; 88311; 97110; 97116; 97162; 97530; J0131; J0690; J1100; J1885; J2250; J2270; J2274; J2370; J2405; J2765; J2795; J7030

== ENCOUNTER 2017-06-07 17:55 | Observation (INO) | END 2017-06-08 18:03 | disposition home or self-care (01) ==